=== PATIENT | male | born 1940 | race Caucasian/White ===

== ENCOUNTER 2016-11-05 10:30 | Emergency (ER) | payer MEDICARE, OTHER ==
--- NOTE | ~2016-11-05 | ER ---
PATIENT'S NAME: VISHNU RANDALL [facility] AGE: 76 Y [address] ROOM: [place] [id number] LOCATION: [facility] ADMIT DATE: 11/05/2016 ER/Outpatient Report DISCHARGE DATE: 11/05/2016 FAMILY PHYSICIAN: Pacheco Arellano MD ATTENDING PHYSICIAN: Jesus Manuel Mathur CHIEF COMPLAINT: Chest pain. HISTORY OF PRESENT ILLNESS: Approximately 15 to 20 minutes prior to arrival, Mr. Randall experienced 5 minutes of squeezing chest pain that may have radiated more to the left side but is mostly central. He has an extensive history of multiple stents and falls with MATTY in [place]. He states that the pain went away on its own. He was not at rest during the pain onset, but he was not really exerting himself. He denies any other symptoms at this time. Past medical history is notable for coronary artery disease, hypertension, stenting, atrial fibrillation, status post pacemaker. Social history is occasional alcohol. No other obvious abnormalities. PAST MEDICAL HISTORY: Documented on the record and reviewed by me. SOCIAL HISTORY: Documented on the record and reviewed by me. MEDICATIONS: Documented on the record and reviewed by me. ALLERGIES: DOCUMENTED ON THE RECORD AND REVIEWED BY ME. REVIEW OF SYSTEMS: All systems reviewed and negative except as noted in the HPI. PHYSICAL EXAMINATION: VITAL SIGNS: Blood pressure 170/88, pulse 70, respiratory rate is 20, temperature 97.0, SpO2 is 99% on room air. Pain 0/10. GENERAL: An age-appropriate male, sitting upright on exam the table, in no apparent pain or distress. NEUROLOGIC: Awake and alert. GCS is 15. No focal deficits. No asymmetry. HEENT: Normocephalic, atraumatic. Eyes are PERRL. Oropharynx is clear. NECK: Supple. Trachea is midline. CHEST: Heart is regular rate and rhythm with no murmurs. PATIENT'S NAME: VISHNU RANDALL [facility] AGE: 76 Y [address] ROOM: [place] [id number] LOCATION: [facility] ADMIT DATE: 11/05/2016 ER/Outpatient Report DISCHARGE DATE: 11/05/2016 FAMILY PHYSICIAN: Pacheco Arellano MD ATTENDING PHYSICIAN: Jesus Manuel Mathur LUNGS: Clear to auscultation bilaterally with no rhonchi, wheezes, or rales. ABDOMEN: Soft, nontender, and nondistended. No rebound or guarding. BACK: Normal to inspection and palpation with no CVA or spinal tenderness. EXTREMITIES: Warm, well formed, well perfused with no deformities or edema. SKIN: Clean, dry, and intact. No diaphoresis. No rashes. LABORATORY DATA AND X-RAYS: Chest x-ray, unremarkable per my review. Initial and repeat EKGs are unchanged compared to prior EKG. Labs: CMS is unremarkable. Magnesium 2.1. Initial CPK of 68, CK-MB of 2.1. Troponin is undetectable. Repeat cardiac enzymes had an elevation of CK-MB up to 2.4 and 3rd set was back down to 2.1. CBC is unremarkable. IMPRESSION: Chest pain, not otherwise specified. EMERGENCY DEPARTMENT COURSE: The patient was seen and evaluated as above. Cardiac rule out was completed with 2 hour enzymes with up trending CK-MB and stable EKGs and no symptoms. Discussed the patient with Dr. Allison, residential designer, from [facility]. She has recommended a 4-hour set. If improved, the patient was discharged with close followup. Exams did improve. The patient remained asymptomatic. No chest pain with ambulation. He will be discharged home with instructions to follow up with [facility] within the week and return immediately if worse. I did give him a card for Dr. Allison should he want to establish local care. MD ALBERT ELIZABETH/britta /[id number] d: 11/05/16 [id number] t: 11/09/16 0749, OUTPATIENT REPORT
[~2016-11-05 10:30] MED LIST: ASPIRIN EC81 MG PO; CARDIZEM CD (T240 MG PO; COZAAR25 MG PO; CPAP INH; FLOMAX0.4 MG PO; FLONASE 50 MCG/16 GM NOSE; LIPITOR40 MG PO; PRADAXA150 MG PO; SOTALOL120 MG PO; VITAMIN D1000 UNIT PO; ZYRTEC10 MG PO
[2016-11-05 11:10] LABS: BASOPHIL % 0.6 %; EOSINOPHIL # 0.1 K/uL (0.0-0.5); EOSINOPHIL % 1.9 %; HEMATOCRIT 41.8 % (37.0-53.0); IMMATURE GRANULOCYTE % 0.2 %; LYMPHOCYTE % 19.5 %; MCHC 33.5 gm/dL (32.0-36.5); MCV 92.7 fl (83.0-98.0); MONOCYTE # 0.5 K/uL (0.0-1.0); MONOCYTE % 8.8 %; NEUTROPHIL # (ANC) 3.6 K/uL (1.4-9.0); NRBC % 0 /100WBC (0-0.00); PLATELET COUNT 174 K/uL (150-450); RBC 4.51 M/uL (3.50-5.50); RDW-CV 12.4 % (11.9-14.6); WBC 5.2 K/uL (4.0-11.0)
[2016-11-05 11:19] LABS: INR - (THERAPEUTIC) 1.12 (0.92-1.07); PROTIME 11.8 SECONDS (9.8-11.4); PTT 40 SECONDS (25-32)
[2016-11-05 11:31] LABS: ALBUMIN 3.5 gm/dL (3.5-5.0); ALK PHOS 132 IU/L (33-138); ALT 22 IU/L (12-78); AST 21 IU/L (10-40); BLOOD UREA NITROGEN 15 mg/dL (6-24); CALCIUM 8.5 mg/dL (8.5-10.5); CHLORIDE 106 mMol/L (96-110); CO2 29 mMol/L (22-32); CPK 68 IU/L (35-332); CREATININE 0.9 mg/dL (0.6-1.3); MAGNESIUM 2.1 mg/dL (1.8-2.6); SODIUM 140 mMol/L (135-145); TOTAL BILIRUBIN 0.7 mg/dL (0.0-1.5); TOTAL PROTEIN 6.7 g/dL (6.0-8.4)
[2016-11-05 13:14] LABS: CPK 68 IU/L (35-332)
[2016-11-05 15:17] LABS: CPK 62 IU/L (35-332)
== END 2016-11-05 15:52 | disposition disaster alternative care site (69) ==
LOC: GMED 10:30
PROVIDERS: Emergency Medicine
DX: R07.9 Chest pain, unspecified (principal); I10 Essential (primary) hypertension; Z95.1 Presence of aortocoronary bypass graft; Z79.82 Long term (current) use of aspirin; Z79.891 Long term (current) use of opiate analgesic; Z79.899 Other long term (current) drug therapy